=== PATIENT | female | born 1955 | race Hispanic/Latino ===

== ENCOUNTER → 2018-11-14 | Day surgery (SDC) | payer OTHER ==
[~2018-11-14] MED LIST: AMLODIPINE BESYL5 MG PO; BIOTIN2500 MCG PO; CALTRATE-600 W1 EACH PO; FENTANYL CITRATE/PF 100MCG/2 ML INJ ONE; HYDROCHLOROTHIA25 MG PO; HYOSCYAMINE SULFATE 0.5 MG/ML INJ ONE; MIDAZOLAM HCL 2 MG/2 ML VIAL ONE; PANTOPRAZOLE SO40 MG PO; PROPOFOL IV EMULSION 10 MG/ML 50 ML VIAL ONE
--- OUTSIDE RECORDS SUMMARY | 2018-11-14 10:39 | XMS REPORT | Summary of Care ---
Author Author [facility] Organization [facility] Address Unknown Phone Unavailable Encounter HQ Marleen(FIN) [id number] Date(s): 02/05/18 - 02/05/18 [facility] [address], [address] [place] [address]- [phone] Discharge Disposition: Home or Self Care Attending Physician: Renata Bone MD Vital Signs Most recent to 1 oldest [Reference Range]: Height 149.86 cm (02/05/18 1:13 PM) Temperature Oral 98.9 DegF [96.4-99.1 DegF] (02/05/18 1:13 PM) Blood Pressure 127/81 mmHg [90-140/60-90 mmHg] (02/05/18 1:13 PM) Respiratory Rate 16 BRMIN [14-20 BRMIN] (02/05/18 1:13 PM) Peripheral Pulse 66 bpm Rate [60-100 bpm] (02/05/18 1:13 PM) Weight 59.148 kg (02/05/18 1:13 PM) Body Mass Index 26.34 m2 (02/05/18 1:13 PM) Problem List Condition Effective Dates Status Health Status Informant Benign essential Active hypertension(Confirm ed) Screening for breast Active cancer(Confirmed) GERD - Active Gastro-esophageal reflux disease(Confirmed) History of colonic Active polyps(Confirmed) Hypercholesterolemia Active (Confirmed) Simple hepatic Active cyst(Confirmed) Multiple thyroid Active nodules(Confirmed) Nephrolithiasis(Conf Active irmed) Annual physical Active exam(Confirmed) Prediabetes(Confirme Active d) Screening for Active cervical cancer(Confirmed) Bilateral renal Active cysts(Confirmed) Encounter for Active immunization(Confirm ed) Allergies, Adverse Reactions, Alerts Substance Reaction Severity Status MANASA Inhibitors Coughing Active Medications Caltrate 600 + D oral tablet 1 tab, PO, BID, 0 Refill(s) Start Date: 02/05/18 Status: Ordered Results No data available for this section Immunizations Given and Recorded Vaccine Date Status Refusal Reason influenza virus vaccine, inactivated 08/08/17 Given influenza virus vaccine, inactivated 08/04/16 Given Procedures Procedure Date Related Diagnosis Body Site Status Screening mammography1 09/06/17 Completed Colonoscopy2 11/02/15 Completed Mammogram - screening 08/24/15 Completed Sampling of cervix for Papanicolaou smear 05/05/14 Completed Cholecystectomy 04/26/02 Completed Breast reduction, bilateral 06/02/99 Completed Bilateral tubal ligation 08/02/88 Completed Cataract surgery3 Completed Injection of therapeutic substance around the Completed eye4 1IMPRESSION: BENIGN RECOMMENDATION:There is no mammographic evidence of malignancy. A 1 year screeni ng mammogram is recommended.(09/07/2018) 2colonic polyps, repeat in 3 years 3Left Eye- 2004 Right Eye- 02/20/2007 4(Dr. Nelson - [facility]) Social History Social History Type Response Substance Abuse Use: None. Exercise Exercise type: none. Employment/School Status: Employed. 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 Alcohol Never Smoking Status Never smoker; Type: Cigars; Exposure to Tobacco Smoke None; Cigarette Smoking Last 365 Days No; Reg Smoking Cessation Counseling No entered on: 02/05/18 Assessment and Plan No data available for this section
--- OUTSIDE RECORDS SUMMARY | 2018-11-14 10:39 | XMS REPORT | Clinical Summary ---
Author Author [facility] [facility] Organization [facility] [employer] [facility] Address Unknown Phone Unavailable Care Team Providers Care Fiber Worker Name Role Phone Renata Bone PCP Allergies Comments Active Allergy Reactions Severity Noted Date cough Abilio Inhibitors Other (See 02/27/2018 Comments) Medications End Date Status Medication Sig Dispensed Refills Start Date Active amLODIPine (NORVASC) 5 MG Take 5 mg by 0 tablet mouth daily. Active BIOTIN ORAL Take by mouth 0 daily. Active CALCIUM CARBONATE/VITAMIN Take by mouth 0 D3 (CALTRATE 600 + D daily. ORAL) Active lactobacillus rhamnosus, Take 1 0 GG, (CULTURELLE) 10 capsule by billion cell capsule mouth daily. Active pantoprazole (PROTONIX) Take 40 mg by 0 40 MG tablet mouth daily. Active hydroCHLOROthiazide Take 25 mg by 0 (HYDRODIURIL) 25 MG mouth daily. tablet 03/11/2018 acetaminophen-codeine Take 1 tablet 30 tablet 0 (TYLENOL #3) 300-30 mg by mouth 8 per tablet every 6 (six) hours as needed for up to 10 days. Max Daily Amount: 4 tablets 03/08/2018 cephalexin (KEFLEX) 500 Take 1 21 capsule 0 MG capsule capsule (500 8 mg total) by mouth 3 (three) times daily for 7 days. Active Problems Not on file Encounters Care Team Description Date Type Specialty Naima Barrientos CRNA 03/01/2018 Anesthesia Event Bartolo Nelson MD TRANSFER/ REARRANGEMENT,TISSUE EYELID 03/01/2018 Surgery Bartolo Nelson MD Basal cell carcinoma of skin of left eyelid, including canthus (Primary Dx) 03/01/2018 Hospital Encounter Resource, [facility] Preadmit Phone 02/27/2018 Hospital Pre-Admission Testing Encounter after 11/13/2017 Social History Date Tobacco Use Types Packs/Day Years Used Never Smoker Smokeless Tobacco: Never Used Alcohol Use Drinks/Week oz/Week Comments No Sex Assigned at Date Recorded Not on file Industry Job Start Date Occupation Not on file Not on file Not on file Travel End Travel History Travel Start No recent travel history available. Last Filed Vital Signs Time Taken Vital Sign Reading 03/01/2018 1:35 PM CDT Blood Pressure 121/70 03/01/2018 1:35 PM CDT Pulse 67 03/01/2018 1:35 PM CDT Temperature 36.4 C (97.6 F) 03/01/2018 1:35 PM CDT Respiratory Rate 18 03/01/2018 1:35 PM CDT Oxygen Saturation 96% - Inhaled Oxygen - Concentration 02/27/2018 6:44 PM CDT Weight 55.8 kg (123 lb) 02/27/2018 6:44 PM CDT Height 149.9 cm (4' 11") 02/27/2018 6:44 PM CDT Body Mass Index 24.84 Plan of Treatment Not on file Procedures Comments Procedure Name Priority Date/Time Associated Diagnosis TRANSFER/ 03/01/2018 Basal cell carcinoma of REARRANGEMENT,TISSUE 12:18 PM CDT left upper eyelid EYELID after 11/13/2017 Results Not on fileafter 11/13/2017 Insurance Payer Benefit Subscriber ID Type Phone Address Plan / Group [facility] xxxxxxxxxxxx HMO/POS [phone] [facility] CHOICE EXCHANGE
--- OUTSIDE RECORDS SUMMARY | 2018-11-14 10:39 | XMS REPORT | Summary of Care ---
Author Author [facility] Organization [facility] Address Unknown Phone Unavailable Encounter HQ Marleen(FIN) [id number] Date(s): 02/05/18 - 02/05/18 [facility] [address], [address] [place] [address]- [phone] Discharge Disposition: Home or Self Care Attending [...] Right Eye- 02/20/2007 4(Dr. Nelson - [facility]) Social History Social History Type Response Substance Abuse Use: None. Exercise Exercise type: none. Employment/School Status: Employed. 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 Alcohol Never Smoking Status Never smoker; Type: Cigars; Exposure to Tobacco Smoke None; Cigarette Smoking Last 365 Days No; Reg Smoking Cessation Counseling No entered on: 02/05/18 Assessment and Plan No data available for this section
--- OUTSIDE RECORDS SUMMARY | 2018-11-14 10:39 | XMS REPORT | Summary of Care ---
Author Author [facility] Organization [facility] Address Unknown Phone Unavailable Encounter HQ Marleen(FIN) [id number] Date(s): 06/08/17 - 06/08/17 [facility] [address] [place] [address]- Discharge Disposition: Home or Self Care Attending Physician: Renata Bone MD Referring Physician: Renata Bone MD Vital Signs No data available for this section Problem List Condition Effective Dates Status Health Status Informant Benign essential Active hypertension(Confirm ed) Screening for breast Active cancer(Confirmed) GERD - Active Gastro-esophageal reflux disease(Confirmed) History of colonic Active polyps(Confirmed) Simple hepatic Active cyst(Confirmed) Multiple thyroid Active nodules(Confirmed) Nephrolithiasis(Conf Active irmed) Annual physical Active exam(Confirmed) Prediabetes(Confirme Active d) Screening for Active cervical cancer(Confirmed) Bilateral renal Active cysts(Confirmed) Allergies, Adverse Reactions, Alerts Substance Reaction Severity Status MANASA Inhibitors Coughing Active Medications No data available for this section Results No data available for this section Immunizations Given and Recorded Vaccine Date Status Refusal Reason influenza virus vaccine, inactivated 08/04/16 Given Procedures Procedure Date Related Diagnosis Body Site Colonoscopy1 11/02/15 Mammogram - screening 08/24/15 Sampling of cervix for Papanicolaou smear 05/05/14 Cholecystectomy 04/26/02 Breast reduction, bilateral 06/02/99 Bilateral tubal ligation 08/02/88 Cataract surgery2 1colonic polyps, repeat in 3 years 2Left Eye- 2004 Right Eye- 02/20/2007 Social History Social History Type Response Substance Abuse Use: None. Exercise Exercise type: none. Employment/School Status: Employed. Work/School description: [employer]. Alcohol Never Smoking Status Never smoker; Type: Cigars; Exposure to Tobacco Smoke None; Cigarette Smoking Last 365 Days No; Reg Smoking Cessation Counseling No Assessment and Plan No data available for this section
--- OUTSIDE RECORDS SUMMARY | 2018-11-14 10:39 | XMS REPORT | Summary of Care ---
Author Author [facility] Organization [facility] Address Unknown Phone Unavailable Encounter HQ Marleen(FIN) [id number] Date(s): 09/06/17 - 09/06/17 [facility] [address] [place] [address]- Discharge Disposition: Home or Self Care Attending [...] type: none. Employment/School Status: Employed. 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
--- OUTSIDE RECORDS SUMMARY | 2018-11-14 10:39 | XMS REPORT | Summary of Care ---
Author Author [facility] Organization [facility] Address Unknown Phone Unavailable Encounter HQ Marleen(FIN) [id number] Date(s): 01/18/16 - 01/18/16 [facility] [address] [place] [address]- Discharge Disposition: Home Attending Physician: Karine Murillo MD Referring Physician: Physician, Non Associated MD Vital Signs No data available for this section Problem List Condition Effective Dates Status Health Status Informant Benign essential Active hypertension(Confirm ed) GERD - Active Gastro-esophageal reflux disease(Confirmed) History of colonic Active polyps(Confirmed) Simple hepatic Active cyst(Confirmed) Nephrolithiasis(Conf Active irmed) Annual physical Active exam(Confirmed) Prediabetes(Confirme Active d) Screening for Active cervical cancer(Confirmed) Allergies, Adverse Reactions, Alerts Substance Reaction Severity Status MANASA Inhibitors Coughing Active Medications No data available for this section Results No data available for this section Immunizations No data available for this section Procedures Procedure Date Related Diagnosis Body Site Colonoscopy1 11/02/15 Mammogram - screening 08/24/15 Sampling of cervix for Papanicolaou smear 05/05/14 Cholecystectomy 04/26/02 Breast reduction, bilateral 06/02/99 Bilateral tubal ligation 08/02/88 Cataract surgery2 1colonic polyps, repeat in 3 years 2Left Eye- 2004 Right Eye- 02/20/2007 Social History Social History Type Response Substance Abuse Use: None. Exercise 1 Employment/School Status: Employed. 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
--- OUTSIDE RECORDS SUMMARY | 2018-11-14 10:39 | XMS REPORT | Continuity of Care Document ---
Author Author [facility] Address Unknown Phone Unavailable Problems Problem Status Onset Date Classification Date Reported Comments Source DX: ROUTINE MAMMO Active 08/08/2018 [facility] SCREENING MAMMOGAM Active 08/10/2017 [facility] MARI RENAL CYST Active 06/02/2017 [facility] Z13.820=ENCOUNTER FOR SCREENING FOR OSTE Active 01/13/2016 [facility] Prediabetes Active Problem 01/21/2016 [facility] Benign essential hypertension Active Problem 05/14/2018 [facility] Screening for breast cancer Active Problem 05/14/2018 [facility] GERD - Gastro-esophageal reflux disease Active Problem 05/14/2018 [facility] History of colonic polyps Active Problem 05/14/2018 [facility] Hypercholesterolemia Active Problem 05/14/2018 [facility] Simple hepatic cyst Active Problem 05/14/2018 [facility] Multiple thyroid nodules Active Problem 05/14/2018 [facility] Nephrolithiasis Active Problem 05/14/2018 [facility] Prediabetes Active Problem 05/14/2018 [facility] Screening for cervical cancer Active Problem 05/14/2018 [facility] Bilateral renal cysts Active Problem 05/14/2018 [facility] Encounter for immunization Active Problem 05/14/2018 [facility] Medications Medication Details Route Status Patient Instructions Ordering Provider Order Date Source Calcium Carbonate 1500 MG / Cholecalciferol 800 UNT Oral Tablet [Caltrate Plus D 600/800] 1 tab, PO, BID, 0 Refill(s) Active 02/05/2018 [facility] Allergies, Adverse Reactions, Alerts Substance Category Reaction Severity Reaction type Status Date Reported Comments Source MANASA Inhibitors Assertion Coughing Drug allergy Active [facility] Immunizations Immunization Date Given Site Status Last Updated Comments Source influenza virus vaccine, inactivated 08/08/2017 Right Deltoid completed [facility] influenza virus vaccine, inactivated 08/04/2016 Left Deltoid completed [facility] Results Order Name Results Value Reference Range Date Interpretation Comments Source Breast Mammo Scrn MARI w alfonso incl CAD MA Breast Mammo Scrn MARI w alfonso incl CAD MA BILATERAL DIGITAL SCREENING MAMMOGRAM 3D/2D WITH CAD: 09/07/2018 CLINICAL: /Routine. Current study was evaluated with a Computer Aided Detection (CAD) system. COMPARISON:Comparison is made to exams dated: 09/06/2017 mammogram - [facility], 09/08/2016 mammogram, 08/24/2015 mammogram, and 05/05/2014 mammogram. TECHNIQUE: Digital Breast Tomosynthesis was performed and utilized for Interpretation. Cenovia Version 1.3 was utilized for computer aided detection. FINDINGS: There are scattered fibroglandular densities in both breasts. The patient is status post reduction both breasts. Both breasts have post- operative findings. There are benign calcifications in both breasts. No significant masses, calcifications, or other findings are seen in either breast. There has been no significant interval change. IMPRESSION: BENIGN RECOMMENDATION:There is no mammographic evidence of malignancy. A 1 year screening mammogram is recommended.(09/08/2019) This exam was interpreted at [id number] for [facility]. Laura galdamez/penrad:09/07/2018 10:01:46 Label Sewer(s): Joceline Mcintosh, [facility] letter sent: BI-RADS 1/2 Mammogram BI-RADS: 2 Benign 09/07/2018 - - Read by: Laura Ferris MD Dictated Date/time: 09/07/18 10:01 Electronically Signed by: Laura Ferris MD 09/07/18 10:01 FINAL REPORT [facility] Breast Mammo Scrn MARI w alfonso incl CAD [place] Breast Mammo Scrn MARI w alfonso incl CAD MA BILATERAL DIGITAL SCREENING MAMMOGRAM 3D/2D WITH CAD: 09/06/2017 CLINICAL: /Routine. Current study was evaluated with a Computer Aided Detection (CAD) system. COMPARISON:Comparison is made to exams dated: 09/08/2016 mammogram, 08/24/2015 mammogram, and 05/05/2014 mammogram. TECHNIQUE: Digital Breast Tomosynthesis was performed and utilized for Interpretation. Cenovia Version 1.3 was utilized for computer aided detection. There are scattered fibroglandular densities in both breasts. FINDINGS: The patient is status post reduction both breasts. Both breasts have post- operative findings. There are benign calcifications in both breasts. No significant masses, calcifications, or other findings are seen in either breast. There has been no significant interval change. IMPRESSION: BENIGN RECOMMENDATION:There is no mammographic evidence of malignancy. A 1 year screening mammogram is recommended.(09/07/2018) This exam was interpreted at [id number] for [facility]. Laura galdamez/aleena:09/13/2017 10:31:02 Label Sewer(s): Joceline Mcintosh, [facility] letter sent: BI-RADS 1/2 Mammogram BI-RADS: 2 Benign 09/06/2017 - - Read by: Laura Ferris MD Dictated Date/time: 09/13/17 10:31 Electronically Signed by: Laura Ferris MD 09/13/17 10:31 FINAL REPORT [facility] Retroperitoneal Complete US Retroperitoneal Complete US Retroperitoneal Complete US CLINICAL HISTORY: - R/O polycystic kidneys. COMPARISON: None TECHNIQUE: Hayward scale and color Doppler images of both kidneys were performed with a curvilinear transducer with standard technique. Static images are submitted for review. FINDINGS: KIDNEYS: The right kidney measures 10.6 x 4.5 x 5.4 cm and the left kidney measures 10.7 x 5.8 x 5.2 cm in the sagittal AP and transverse dimensions respectively. Kidneys are relatively symmetric in size. Cortical volume is reasonably well-preserved. Small cyst is visualized in the upper pole of right kidney approximately 1.6 cm in size. Questionable lower pole right kidney approximately 1.2 cm in size. Cortical calcification versus calyceal calcification upper pole of right kidney. Multiple calyceal calculi are visualized in the left kidney. BLADDER: Bladder is decompressed. ASCITES: No ascites noted. IMPRESSION: Simple cyst, upper pole of right kidney. Possible cyst, lower pole of right kidney. Short-term sonographic follow-up or further evaluation with pre and postcontrast CT of the abdomen is recommended. Bilateral nephrolithiasis. No hydronephrosis. SL: [id number] 06/08/2017 - - Read by: Red Blankenship MD Dictated Date/time: 06/08/17 10:30 Electronically Signed by: Red Blankenship MD 06/08/17 10:37 FINAL REPORT [facility] Bone Density Scan Bone Density Scan Study: Bone Density Scan Clinical Indication: Z13.820 Encounter for screening for osteoporosis; Images of the axial lumbar spine and left hip have been performed using [employer] Discovery SL scanner. COMPARISON: None FINDINGS: The left hip bone mineral density is 111% of the expected age matched bone mass with a T-score of -0.2. Left hip BMD is 0.930 g/cm2. Femoral neck BMD is 0.700 g/cm2 and T-score of -1.5. The axial lumbar bone mineral density is 109% of the expected age matched bone mass with a T-score -0.7. Axial lumbar average BMD is 0.968 g/cm2. IMPRESSION: 1. Osteopenia. of the left femoral neck. 2. Normal bone mineral density of the total left hip. 3. Normal bone mineral density of the lumbar spine. The World Health Organization has established that OSTEOPOROSIS occurs at -2.5 or more standard deviations (SD) below peak bone mass (T-score on the Hologic report). OSTEOPENIA (low bone mass) occurs at -1.0 standard deviations to -2.5 standard deviations below peak bone mass. SL: [id number] 01/18/2016 - - Read by: Shyam Cantrell MD Dictated Date/time: 01/18/16 13:47 Electronically Signed by: Shyam Cantrell MD 01/18/16 13:51 FINAL REPORT [facility] Vital Signs Vital Sign Value Date Comments Source Respitory Rate 16 02/05/2018 [facility] BMI Calculated 26.34 02/05/2018 [facility] Systolic (mm Hg) 127 02/05/2018 [facility] Diastolic (mm Hg) 81 02/05/2018 [facility] Height 149.86 cm 02/05/2018 [facility] Heart Rate 66 02/05/2018 [facility] Temperature Oral (F) 98.9 F 02/05/2018 [facility] Weight 59.148 02/05/2018 [facility] Encounters Location Location Details Encounter Type Encounter Number Reason For Visit Attending Provider ADM Date DC Date Status Source [facility] Outpatient [id number] Non Physician 01/18/2016 01/19/2016 [facility] Outpatient [id number] RENATA ORTIZ 01/28/2016 Active [facility] Outpatient [id number] RENATA ORTIZ 08/04/2016 [facility] Outpatient [id number] RENATA ORTIZ 12/09/2016 [facility] Outpatient [id number] RENATA ORTIZ 02/02/2017 [facility] Outpatient [id number] RENATA ORTIZ 05/29/2017 [facility] Outpatient [id number] Renata Ortiz 06/08/2017 06/09/2017 [facility] Outpatient [id number] RENATA ORTIZ 08/08/2017 [facility] Outpatient [id number] RENATA ORTIZ 08/15/2017 [facility] Outpatient [id number] Renata Ortiz 09/06/2017 09/07/2017 [facility] Outpatient [id number] RENATA ORTIZ 02/05/2018 [facility] Outpatient [id number] Renata Ortiz 02/05/2018 02/06/2018 [facility] Outpatient [id number] RENATA ORTIZ 08/06/2018 [facility] Procedures Procedure Code Date Perfomer Comments Source Screening mammography<sup>1</sup> [id number] 09/06/2017 IMPRESSION: BENIGN RECOMMENDATION:There is no mammographic evidence of malignancy. A 1 year screening mammogram is recommended.(09/07/2018) [facility] Colonoscopy<sup>1</sup> [id number] 11/02/2015 colonic polyps, repeat in 3 years [facility] Colonoscopy<sup>2</sup> [id number] 11/02/2015 colonic polyps, repeat in 3 years [facility] Mammogram - screening [id number] 08/24/2015 [facility] Mammogram - screening [id number] 08/24/2015 [facility] Sampling of cervix for Papanicolaou smear [id number] 05/05/2014 [facility] Sampling of cervix for Papanicolaou smear [id number] 05/05/2014 [facility] Cholecystectomy [id number] 04/26/2002 [facility] Cholecystectomy [id number] 04/26/2002 [facility] Breast reduction, bilateral [id number] 06/02/1999 [facility] Breast reduction, bilateral [id number] 06/02/1999 [facility] Bilateral tubal ligation [id number] 08/02/1988 [facility] Bilateral tubal ligation [id number] 08/02/1988 [facility] Cataract surgery<sup>2</sup> [id number] Left Eye- 2004 Right Eye- 02/20/2007 [facility] Cataract surgery<sup>3</sup> [id number] Left Eye- 2004 Right Eye- 02/20/2007 [facility] Injection of therapeutic substance around the eye<sup>4</sup> [id number] (Dr. Leslie Blanco) [facility]
[2018-11-14 14:40] VITALS: BP 124/78
[2018-11-14 14:45] LABS: WBC,FECAL (FECAL LACTOFERRIN) NEGATIVE (NEGATIVE)
[2018-11-14 15:28] LABS: C DIFFICILE TOXIN A&B AMP PROB NEGATIVE (NEGATIVE)
--- NOTE | 2018-11-14 15:38 | Operative Report ---
DATE OF PROCEDURE: November 14, 2018 REFERRING PHYSICIAN: Dr. Renata Ortiz PROCEDURES PERFORMED 1. Esophagogastroduodenoscopy with biopsies and polypectomy. 2. Colonoscopy with polypectomy and biopsies. INDICATIONS FOR EGD: Dyspepsia and excessive belching. INDICATIONS FOR COLONOSCOPY: Surveillance colonoscopy, personal history of colon polyps and diarrhea. MEDICATION: Patient was done under MAC. Please see anesthesiologist's note. PROCEDURE: With the patient in the left lateral decubitus position, the flexible fiberoptic Olympus gastroscope was introduced into the esophagus under direct visualization without any difficulty. The scope was advanced with ease into the esophagus under direct visualization. The esophagus appeared to be within normal limits. The scope was then advanced with ease into the stomach. Mucosa overlying the antrum and the body revealed some patchy erythema and low-grade to moderate edema, and biopsies were obtained and sent to stain for H. pylori. Numerous polyps were noted in the body, and they were hyperplastic appearing and approximately 30 were removed per snare electrocautery. The pylorus was of normal contour and shape. It was intubated with ease. The scope was advanced all the way to the 2nd portion of the duodenum. Biopsies were obtained from the proximal 2nd portion and the duodenal bulb to rule out sprue considering the patient's history of chronic diarrhea. The scope was then withdrawn back into the stomach and retroflexed. The mucosa overlying the fundus and the cardia appeared to be within normal limits. The scope was then straightened out. The stomach was decompressed. The scope was subsequently withdrawn. Patient tolerated the procedure well. IMPRESSION 1. Normal esophagus. 2. Gastritis, biopsied. Biopsies sent to stain for Helicobacter pylori. 3. Gastric polyps, numerous, approximately 30 polyps removed per snare electrocautery. 4. Rule out sprue. PLAN: Follow up histology. Continue Protonix 40 mg 1 p.o. q.a.m. a.c. Patient was then turned around. After adequate lubrication of the anal canal, a flexible fiberoptic Olympus colonoscope was inserted into the rectum with ease and advanced all the way to the cecum. Mucosa overlying the cecum appeared to be within normal limits. The ileocecal valve was intubated and the scope was advanced into the terminal ileum. Biopsies were obtained. The scope was then withdrawn back into the colon. It was then withdrawn slowly. An approximately 1 cm sessile polyp was noted in the ascending colon that was removed per snare electrocautery and polypectomy site was hemoclipped. The rest of the ascending and transverse appeared to be within normal limits. Some mild inflammatory changes were noted in the left colon and multiple random biopsies were obtained. Some diverticular disease was noted in the sigmoid colon. The scope was then retroflexed into the distal rectum and small internal hemorrhoids were noted, none of which was actively bleeding. The scope was then straightened out. It was subsequently withdrawn after securing an adequate stool specimen that was sent for the appropriate stool studies. Patient tolerated the procedure well. IMPRESSION 1. Ascending colon polyp, approximately 1 cm, removed per snare electrocautery and polypectomy site was hemoclipped. 2. Mild patchy left-sided colitis. 3. Diverticulosis. 4. Internal hemorrhoids, none actively bleeding. PLAN: Follow up histology. Follow up stool studies. Initiate VSL #3 one p.o. daily and Bentyl 20 mg 1 p.o. t.i.d. Job#: [id number] RI cc:RENATA ORTIZ MD
== END | disposition home or self-care (01) ==
LOC: OR 10:37
PROVIDERS: ATTEND Internal Medicine Gastroenterology
DX: K29.70 Gastritis, unspecified, without bleeding (principal); D12.2 Benign neoplasm of ascending colon; K31.7 Polyp of stomach and duodenum; K51.50 Left sided colitis without complications; K57.30 Diverticulosis of large intestine without perforation or abscess without bleeding; K64.8 Other hemorrhoids; I10 Essential (primary) hypertension; N20.0 Calculus of kidney; Z88.8 Allergy status to other drugs, medicaments and biological substances; Z01.810 Encounter for preprocedural cardiovascular examination; Z85.828 Personal history of other malignant neoplasm of skin; Z80.0 Family history of malignant neoplasm of digestive organs
CPT/HCPCS: 43239; 43251; 45380; 45385; 83630; 83993; 87045; 87177; 87493; 93005; J1980; J2250; 45384

== ENCOUNTER → 2020-01-07 | Day surgery (SDC) | payer OTHER ==
[2020-01-02 11:30] LABS: BASOPHILS % 0.5 % (0.0-1.0); EOSINOPHILS # (AUTO) 0.1 (0.0-0.4); HEMATOCRIT 37.8 % (34.2-44.1); HEMOGLOBIN 12.9 g/dL (12.0-16.0); LYMPHOCYTES # (AUTO) 1.7 (1.0-3.2); LYMPHOCYTES % 27.5 % (18.0-39.1); MEAN CORPUSCULAR HEMOGLOBIN 28.6 pg (28-32); MEAN CORPUSCULAR HGB CONC 34.1 g/dL (31-35); MEAN CORPUSCULAR VOLUME 83.8 fL (81-99); MONOCYTES # (AUTO) 0.5 (0.2-0.8); MONOCYTES % 7.8 % (4.4-11.3); NEUTROPHILS # (AUTO) 3.8 (2.1-6.9); PLATELET COUNT 225 x10e3/uL (140-360); RED BLOOD COUNT 4.51 x10e6/uL (3.6-5.1); RED CELL DISTRIBUTION WIDTH 12.8 % (11.7-14.4)
[2020-01-02 11:45] LABS: ANION GAP 11.4 mmol/L (8-16); BLOOD UREA NITROGEN 13 mg/dL (7-26); BUN/CREATININE RATIO 18 (6-25); CALCIUM 9.7 mg/dL (8.4-10.2); CARBON DIOXIDE 29 mmol/L (22-29); CHLORIDE 103 mmol/L (98-107); CREATININE, SERUM 0.72 mg/dL (0.57-1.11); EST GLOMERULAR FILTRATION RATE > 60 ML/MIN (60-); GLUCOSE 93 mg/dL (74-118); POTASSIUM 3.4 mmol/L (3.5-5.1); SODIUM 140 mmol/L (136-145)
[~2020-01-07] MED LIST changes: +ACETAMINOPHEN 1000 MG/100 ML IV ONE; +DEXAMETHASONE SOD PHOS INJ 4 MG/ML VIAL ONE; -FENTANYL CITRATE/PF 100MCG/2 ML INJ ONE; -HYOSCYAMINE SULFATE 0.5 MG/ML INJ ONE; +KETOROLAC TROMETHAMINE 30 MG/ML VIAL ONE; +LIDOCAINE HCL 2% LOCAL INJ 5 ML SDV VIAL INJ ONE; -MIDAZOLAM HCL 2 MG/2 ML VIAL ONE; +ONDANSETRON HCL INJ 2MG/ML 2ML 2 MG/ML VIAL ONE; +PROPOFOL IV EMULSION 10 MG/ML 20 ML VIAL ONE; -PROPOFOL IV EMULSION 10 MG/ML 50 ML VIAL ONE; +SEVOFLURANE INHAL SOLN 250 ML PEN BTL ONE
--- OUTSIDE RECORDS SUMMARY | 2020-01-07 05:27 | XMS REPORT ---
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 Allergies, Adverse Reactions, Alerts This patient has no known allergies or adverse reactions. Medications This patient has no known medications. Encounters Start Date/Time End Date/Time Encounter Type Admission Type Attending Clinicians Care Facility Care Department Encounter ID 2019-10-09 08:16:09 Outpatient [facility] [place] [id number]
[2020-01-07 10:05] VITALS: BP 139/87
--- NOTE | 2020-03-03 19:22 | Operative Report ---
DATE OF PROCEDURE: 01/07/2020 SURGEON: Karine Murillo MD SURGEON: Karine Stark MD HOGSHEAD OPENER: None. PREOPERATIVE DIAGNOSIS: Postmenopausal bleeding. POSTOPERATIVE DIAGNOSIS: Postmenopausal bleeding as well as endometrial polyp. PROCEDURES PERFORMED: Dilatation and curettage as well as hysteroscopic polypectomy. ANESTHESIA: General. ESTIMATED BLOOD LOSS: Minimal. COMPLICATIONS: None. FINDINGS: Small anteverted uterus with multiple polypoid structures within the endometrial cavity during hysteroscopy. SPECIMENS: Endometrial curettings with fragments of polyp. INDICATIONS: The patient is a 64-year-old postmenopausal female with postmenopausal bleeding and suspected endometrial polyp. PROCEDURE NOTE: The risks, benefits, indications, and alternatives of the procedure were discussed with the patient and the consent was obtained. The patient was taken to the operating room, where general anesthesia was obtained. She was then prepped and draped in typical sterile fashion in dorsal lithotomy position with candy-cane stirrups. Time-out was done. The patient's bladder was drained with a straight catheter prior to the procedure. A weighted speculum was placed in the vagina and the anterior lip of the cervix was grasped with a single-tooth tenaculum. The cervix was then sequentially dilated using Hegar dilators in order to advance the TruClear hysteroscope to the level of the uterine fundus. The uterine cavity was then explored with the above-noted findings. The TruClear device was then used to morcellate and remove the polyps under direct visualization. A sharp curettage was then performed and all curettings were sent for pathology. A survey of the uterine cavity then revealed a normal-appearing and intact cavity. All instruments were removed from the patient's vagina. The tenaculum site and the uterus were noted to be hemostatic. The patient was awakened and brought to the recovery room in stable condition, having tolerated the procedure well. All sponge, lap, needle, instrument counts were correct x2. Karine Murillo MD MEF/MODL /[id number]
== END | disposition home or self-care (01) ==
LOC: OR 05:20
PROVIDERS: ATTEND Obstetrics & Gynecology Obstetrics
DX: N84.0 Polyp of corpus uteri (principal); I10 Essential (primary) hypertension; E78.5 Hyperlipidemia, unspecified; Z01.810 Encounter for preprocedural cardiovascular examination; Z01.812 Encounter for preprocedural laboratory examination
CPT/HCPCS: 36415; 58558; 80048; 85025; 88305; 93005; J0131; J1100; J1885; J2001; J2405; J2704

== ENCOUNTER → 2021-11-29 | Day surgery (SDC) | payer MEDICARE, OTHER ==
[2021-11-25 10:11] LABS: BASOPHILS % 0.6 % (0.0-1.0); EOSINOPHILS # (AUTO) 0.1 (0.0-0.4); EOSINOPHILS % 1.6 % (0.0-6.0); HEMATOCRIT 37.5 % (34.2-44.1); HEMOGLOBIN 12.4 g/dL (12.0-16.0); LYMPHOCYTES # (AUTO) 1.5 (1.0-3.2); MEAN CORPUSCULAR HEMOGLOBIN 28.7 pg (28-32); MEAN CORPUSCULAR HGB CONC 33.1 g/dL (31-35); MEAN CORPUSCULAR VOLUME 86.8 fL (81-99); MONOCYTES # (AUTO) 0.4 (0.2-0.8); MONOCYTES % 5.9 % (4.4-11.3); NEUTROPHILS # (AUTO) 4.3 (2.1-6.9); NEUTROPHILS % 67.7 % (38.7-80.0); PLATELET COUNT 207 x10e3/uL (140-360); RED BLOOD COUNT 4.32 x10e6/uL (3.6-5.1); RED CELL DISTRIBUTION WIDTH 12.7 % (11.7-14.4)
[~2021-11-29] MED LIST changes: -ACETAMINOPHEN 1000 MG/100 ML IV ONE; -DEXAMETHASONE SOD PHOS INJ 4 MG/ML VIAL ONE; +GLUCAGON FOR INJ 1 MG VIAL ONE; +HYOSCYAMINE SULFATE 0.5 MG/ML INJ ONE; -KETOROLAC TROMETHAMINE 30 MG/ML VIAL ONE; +METOCLOPRAMIDE HCL 10 MG/2ML VIAL ONE; +MIDAZOLAM HCL 2 MG/2 ML VIAL ONE; -ONDANSETRON HCL INJ 2MG/ML 2ML 2 MG/ML VIAL ONE; -SEVOFLURANE INHAL SOLN 250 ML PEN BTL ONE
[2021-11-29 10:10] VITALS: BP 125/75
== END | disposition home or self-care (01) ==
LOC: OR 06:55
PROVIDERS: ATTEND Internal Medicine Gastroenterology
DX: K29.50 Unspecified chronic gastritis without bleeding (principal); D12.0 Benign neoplasm of cecum; K31.7 Polyp of stomach and duodenum; B96.81 Helicobacter pylori [H. pylori] as the cause of diseases classified elsewhere; K44.9 Diaphragmatic hernia without obstruction or gangrene; K57.30 Diverticulosis of large intestine without perforation or abscess without bleeding; K64.8 Other hemorrhoids; I10 Essential (primary) hypertension; N20.0 Calculus of kidney; Z88.8 Allergy status to other drugs, medicaments and biological substances; Z01.810 Encounter for preprocedural cardiovascular examination; Z01.812 Encounter for preprocedural laboratory examination; Z20.822 Contact with and (suspected) exposure to COVID-19; Z79.899 Other long term (current) drug therapy; Z68.23 Body mass index [BMI] 23.0-23.9, adult; Z80.0 Family history of malignant neoplasm of digestive organs
CPT/HCPCS: 36415; 43239; 45385; 85025; 93005; J1610; J1980; J2001; J2250; J2704; J2765; U0002

== ENCOUNTER → 2024-09-25 | Day surgery (SDC) | payer MEDICARE ==
[2024-09-18 14:49] LABS: BASOPHILS % 0.3 % (0.0-1.0); EOSINOPHILS # (AUTO) 0.1 (0.0-0.4); EOSINOPHILS % 2.4 % (0.0-6.0); HEMATOCRIT 36.6 % (34.2-44.1); HEMOGLOBIN 11.7 g/dL (12.0-16.0); LYMPHOCYTES # (AUTO) 1.9 (1.0-3.2); LYMPHOCYTES % 31.3 % (18.0-39.1); MEAN CORPUSCULAR HEMOGLOBIN 28.8 pg (28-32); MEAN CORPUSCULAR VOLUME 90.1 fL (81-99); MONOCYTES # (AUTO) 0.4 (0.2-0.8); MONOCYTES % 6.1 % (4.4-11.3); NEUTROPHILS # (AUTO) 3.6 (2.1-6.9); NEUTROPHILS % 59.7 % (38.7-80.0); PLATELET COUNT 210 x10e3/uL (140-360); RED BLOOD COUNT 4.06 x10e6/uL (3.6-5.1); RED CELL DISTRIBUTION WIDTH 12.7 % (11.7-14.4); WHITE BLOOD COUNT 5.95 x10e3/uL (4.8-10.8)
[~2024-09-25] MED LIST changes: -GLUCAGON FOR INJ 1 MG VIAL ONE; -HYOSCYAMINE SULFATE 0.5 MG/ML INJ ONE; -LIDOCAINE HCL 2% LOCAL INJ 5 ML SDV VIAL INJ ONE; -METOCLOPRAMIDE HCL 10 MG/2ML VIAL ONE; -MIDAZOLAM HCL 2 MG/2 ML VIAL ONE; -PROPOFOL IV EMULSION 10 MG/ML 20 ML VIAL ONE
[2024-09-25] MEDS: LACTATED RINGER'S 1,000 ML ONE (06:41)
[2024-09-25 09:30] VITALS: TEMP 97.1
[2024-09-25 10:00] VITALS: BP 127/68; PULSE 64; RESP 16; O2SAT 96
== END | disposition home or self-care (01) ==
LOC: OR 06:06
PROVIDERS: ATTEND Internal Medicine Gastroenterology
DX: K29.50 Unspecified chronic gastritis without bleeding (principal); Z86.0100 Personal history of colon polyps, unspecified; K31.7 Polyp of stomach and duodenum; K31.89 Other diseases of stomach and duodenum; K44.9 Diaphragmatic hernia without obstruction or gangrene; K57.30 Diverticulosis of large intestine without perforation or abscess without bleeding; I10 Essential (primary) hypertension; K58.9 Irritable bowel syndrome, unspecified; N20.0 Calculus of kidney; Z88.8 Allergy status to other drugs, medicaments and biological substances; Z79.899 Other long term (current) drug therapy; Z85.828 Personal history of other malignant neoplasm of skin
CPT/HCPCS: 36415; 43239; 43251; 45378; 85025; J2470; J7121